=== PATIENT | male | born 1950 | race Caucasian/White ===

== ENCOUNTER 2024-10-16 08:10 | Emergency (ER) | payer MEDICARE, SELFPAY ==
--- NOTE | ~2024-10-16 | US_ITS ---
CLINICAL HISTORY: left leg pain, swelling Venous duplex ultrasound left lower extremity Comparison: None Findings: The visualized deep veins are fully compressible with normal Doppler color flow and spectral tracings. Mildly complex popliteal cyst measuring 4.1 x 1.0 x 1.8 cm. IMPRESSION: 1. Negative for left lower extremity deep vein thrombosis. 2. Mildly complex popliteal cyst. This document has been electronically signed by: Lorenzo Valle MD on 10/16/2024 10:51:03
--- NOTE | ~2024-10-16 | XR_ITS ---
CLINICAL HISTORY: left knee pain 4 view left knee Comparison: None Findings: Bones intact. No dislocations. Mild medial compartment joint space narrowing. Trace joint effusion. No radiopaque foreign body. IMPRESSION: Trace knee joint effusion. No fracture or malalignment. Mild medial compartment joint space narrowing. This document has been electronically signed by: Lorenzo Valel MD on 10/16/2024 09:09:35
[2024-10-16 08:14] VITALS: BP 116/67; PULSE 76; RESP 16; TEMP 36.4; O2SAT 99; BMI 27.3
--- NOTE | 2024-10-16 09:30 | ED_ITS ---
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 Patient states that yesterday he was walking around, and later on in the evening he developed pain in his left knee. He awoke with pain, pressure, a swelling in his left knee. He states that the pain pressures primarily in the back of his knee. No known injury or trauma. No twisting motions. Denies any problems with this left knee in the past. He is currently on Coumadin. Denies any recent travel, surgeries, hospitalizations. Denies taking any medications at home to treat his current symptoms. No other complaints or concerns at this time. MD complaint: Left knee pain swelling Onset (ago): day(s) Location: lower extremity Radiation: non-radiation Quality: aching Pain Consistency: constant Relieving factors: none Exacerbating factors: none Associated symptoms: denies other symptoms Treatments prior to arrival: none Related Data Allergies Allergy/AdvReac Type Severity Reaction Status Date / Time No Known Allergies Allergy Verified 10/16/24 08:15 [No Known Allergies*] Review of Systems Review of Systems: Yes all other systems are reviewed and are negative Constitutional: Constitutional: Reports as per [facility] Social History Social History Advance Directives: No Advance Directives Information Provided: No Do you have a plan to hurt others: No Plan Physical Exam ED Vital Signs: Vital Signs - 24 hr 10/16/24 08:14 Temperature 97.6 F Pulse Rate 76 Respiratory Rate 16 Blood Pressure 116/67 Pulse Oximetry 99 Oxygen Delivery Method Room Air BMI result Body Mass Index 27.3 Const General: cooperative, comfortable and no acute distress Orientation/consciousness: patient oriented x3 Limitations: no limitations HENMT Head: Yes normal to inspection, Yes normocephalic and Yes atraumatic Ears: hearing grossly normal bilaterally General nose exam: Normal external nose present Face and sinus: Yes normal facial exam Mouth: Normal oral and palatal mucosa present, oropharynx normal and moist mucous membranes Throat: Yes posterior oropharynx normal Eyes General: appearance normal, both eyes and all related structures Eyelids: Yes eyelids normal Conjunctivae: conjunctivae normal Sclerae: sclerae normal Pupils: Equal, round and reactive pupils present EOM: EOMs intact bilaterally Neck Neck: Yes normal visual inspection, Yes full ROM and Yes no lymphadenopathy Lymphatic: no lymphadenopathy noted Chest Chest palpation & inspection: normal inspection of the chest Resp Effort & Inspection: normal respiratory effort and able to speak in complete sentences Auscultation: clear to auscultation bilaterally, no crackles, no rales, no rhonchi and no wheezes Cardio Rate: regular rate Rhythm: regular rhythm Heart sounds: S1 normal heart sound present and S2 normal heart sound present GI Inspection: Yes normal to inspection Skin General skin exam: no rashes or lesions noted Trauma: no lacerations or abrasions Wounds: no wounds Neuro General: patient oriented x3 and moves all extremities Cranial nerves: Yes Equal, round and reactive pupils present Extrem Other: Left knee, with mild effusion noted in the prepatellar region. Knee is nontender. He has tenderness to palpation in the posterior knee with fullness noted. Strong DP pulse. No open wounds or sores. No overlying erythema or warmth. Able to flex and extend of the knee however worsening pain with doing so General: Yes normal to inspection Right upper extremity: normal to inspection Left upper extremity: normal to inspection Right lower extremity: normal to inspection Course Reevaluation(s) Reevaluation #1: Ultrasound revealing a mildly complex popliteal cyst. I discussed this finding with patient. Will place patient has left knee in an Christian wrap. Given orthopedic referral. He has been seen by [facility] in the past for a right knee replacement, therefore advised patient to follow-up with them. He was also given [facility] if he is unable to see [facility]. Given strict return precautions. He understands and agrees with plan. Patient stable for discharge. Time: 11:07 Medical Decision Making Medical Decision Making MDM Narrative: This is a 74-year-old male, with a history of NV and TIA on Coumadin, and hypertension, who presents emergency department with complaints of left knee pain since yesterday. On arrival, vital signs within normal limits. He is speaking full sentences under no acute distress. Left knee with mild effusion noted, with no erythema or warmth. He has full active range of motion however with pain elicited. He is ambulatory with antalgic gait secondary to the pain. He has pain and fullness behind his posterior knee. Differential diagnoses include Mejia's cyst, DVT-unlikely as patient is on Coumadin, knee strain, sprain, arthritis x-ray was obtained prior to my assessment. There is mild joint effusion seen, with mild medial compartment joint space narrowing. Will obtain ultrasound due to fullness behind left knee, rule out DVT versus Mejia's cyst. Differential Diagnosis Differential Diagnoses: The differential diagnosis associated with the presentation includes See above Admission/Observation Consideration of admission/observation: Escalation of care including admission/observation considered Radiology Impression Discussion of test interpretation with radiology: I have reviewed the radiologist's reading. Radiologist Impression: CLINICAL HISTORY: left leg pain, swelling Venous duplex ultrasound left lower extremity Comparison: None Findings: The visualized deep veins are fully compressible with normal Doppler color flow and spectral tracings. Mildly complex popliteal cyst measuring 4.1 x 1.0 x 1.8 cm. IMPRESSION: 1. Negative for left lower extremity deep vein thrombosis. 2. Mildly complex popliteal cyst. This document has been electronically signed by: Lorenzo Valle MD on 10/16/2024 10:51:03 Dictated By: Lorenzo Valle MD CLINICAL HISTORY: left knee pain 4 view left knee Comparison: None Findings: Bones intact. No dislocations. Mild medial compartment joint space narrowing. Trace joint effusion. No radiopaque foreign body. IMPRESSION: Trace knee joint effusion. No fracture or malalignment. Mild medial compartment joint space narrowing. This document has been electronically signed by: Lorenzo Valle MD on 10/16/2024 09:09:35 Dictated By: Lorenzo Valle MD Discharge Plan Discharge Clinical Impression: Popliteal cyst Qualifiers: Laterality: left Qualified Code(s): M71.22 - Synovial cyst of popliteal space [Mejia], left knee Patient Disposition: Home, Self-Care Instructions: Bakers Cyst (ED) Additional Instructions: You were seen in the emergency department due to left knee pain. Your x-ray of your left knee shows swelling, as well as findings suggestive of arthritis. Your ultrasound does show evidence of a complex popliteal cyst. Popliteal cyst also known as Mejia's cyst, can go away on its own with rest, elevation, and compression however at times this does need to be managed through an pricing specialist. Call [facility] on Friday for follow- up. You may also follow-up with our orthopedic surgeons if you are unable to see [facility]. Please use Christian wrap for compression, ice, elevate your left leg. You may take Tylenol as needed for pain. If any new or worsening symptoms occur including but not limited to increased swelling, increased redness, inability to bend your knee, please seek emergent care. Referrals: [facility] [Provider Group] Print Language: Czech
[2024-10-16 11:34] VITALS: BP 116/67; PULSE 76; RESP 16; TEMP 36.4; O2SAT 99
== END 2024-10-16 11:34 | disposition home or self-care (01) ==
PROVIDERS: Emergency Provider Emergency Medicine; PCP Internal Medicine
DX: M71.22 Synovial cyst of popliteal space [Baker], left knee (principal); M25.462 Effusion, left knee; M79.662 Pain in left lower leg; I10 Essential (primary) hypertension; Z86.73 Personal history of transient ischemic attack (TIA), and cerebral infarction without residual deficits; Z79.01 Long term (current) use of anticoagulants
CPT/HCPCS: 73562; 93971; 99282; 99284

== ENCOUNTER → 2024-10-16 08:55 | Outpatient (BNV) | payer MEDICARE, SELFPAY | PROVIDERS: Emergency Provider Emergency Medicine; PCP Internal Medicine; Visit Provider Radiology Vascular & Interventional Radiology | DX: M79.605 Pain in left leg (principal); M25.562 Pain in left knee | CPT/HCPCS: 73562; 93971 ==